=== PATIENT | female | born 1960 | race Caucasian/White ===

== ENCOUNTER 2020-08-04 07:34 | Outpatient (CLI) | payer OTHER, SELFPAY ==
--- NOTE | ~2020-08-04 | US_ITS ---
EXAMINATION: US right upper quadrant DATE: 08/04/2020 08:16 INDICATION: Abnormal liver function tests. TECHNIQUE: Multiple grayscale and Doppler ultrasound images of the abdomen were obtained. COMPARISON: CT abdomen 02/10/2007, chest CT 07/17/2010 FINDINGS: The visualized portions of the head and body of the pancreas are normal. The liver is theo l without focal lesion. No liver surface nodularity. There is normal flow in main portal vein. The ga llbladder is absent. The common duct is normal and measures 4 mm. IMPRESSION: 1. Normal right upper quadrant ultrasound status post cholecystectomy. Reviewed, dictated and finalized at location A. UNTING TECHNICIAN
== END 2020-08-04 07:35 | disposition home or self-care (01) ==
LOC: ANHIMG 07:39
DX: R74.8 Abnormal levels of other serum enzymes (principal)
CPT/HCPCS: 76705

== ENCOUNTER → 2022-04-19 11:41 | Outpatient (CLI) | payer OTHER, SELFPAY ==
--- NOTE | ~2022-04-19 | XR_ITS ---
EXAMINATION: XR chest 2V Exam Date/Time: 04/19/2022 12:02 CDT HISTORY: sob cough for 1 month intermittent fevers Comparison: 07/17/2010. RESULT: Lines, tubes, and devices: None. Lungs and pleura: Subsegmental left basilar opacity. Limited [id number] in the lateral image. Cardiomediastinal silhouette: Stable. Other: No acute osseous or upper abdominal finding. IMPRESSION: Limited lateral view. Left basilar scar/atelectasis. No acute cardiopulmonary process. Reviewed, dictated and finalized at location K. IMPRESSION: Limited lateral view. Left basilar scar/atelectasis. No acute cardiopulmonary p rocess.
== END ==
DX: R06.09 Other forms of dyspnea (principal); R05.3 Chronic cough
CPT/HCPCS: 71046

== ENCOUNTER 2022-05-06 10:13 | Outpatient (CLI) | payer OTHER, SELFPAY ==
--- NOTE | 2022-05-06 | ECG_ITS ---
Measurements Intervals Clear Rate: 68 P: 66 TX: 156 QRS: 89 QRSD: 78 T: 52 QT: 420 QTc: 450 Interpretive Statements SINUS RHYTHM NO PREVIOUS ECG AVAILABLE FOR COMPARISON Electronically Signed On 05-06-2022 13:07:44 CDT by Sherrell Camacho M.D.
== END 2022-05-06 10:14 | disposition home or self-care (01) ==
LOC: ANHLAB 10:18
DX: R06.09 Other forms of dyspnea (principal)
CPT/HCPCS: 93005